=== PATIENT | female | born 1970 | race Caucasian/White ===

== ENCOUNTER 2021-10-15 08:19 | Day surgery (SDC) | payer MEDICAID, SELFPAY ==
[~2021-10-15] VITALS: Ht 160 cm; Wt 64.4 kg
[2021-10-15] MEDS: MIDAZOLAM HCL 5 MG/5 ML VIAL ONE ×3 (09:06→09:13)
[2021-10-15] MEDS: MEPERIDINE 100 MG INJ. 100 MG/ML VIAL ONE ×2 (09:06→09:11)
[2021-10-15 12:48] VITALS: BP_SYST 95
== END 2021-10-15 12:35 | disposition home or self-care (01) ==
LOC: SDS 08:19 → SMU 08:21 → SDS 12:35
PROVIDERS: ATTEND Internal Medicine
DX: Z12.11 Encounter for screening for malignant neoplasm of colon (principal); K63.5 Polyp of colon; K64.8 Other hemorrhoids; Z80.0 Family history of malignant neoplasm of digestive organs; Z86.010 Personal history of colon polyps; Z79.899 Other long term (current) drug therapy; Z20.822 Contact with and (suspected) exposure to COVID-19
CPT/HCPCS: 45380; 88305; 99152; G0378; J2175; J2250; U0003; 45385